=== PATIENT | female | born 1990 | race American Indian/Alaskan Native ===

== ENCOUNTER 2017-04-19 14:05 | Emergency (ER) | payer SELFPAY ==
[2017-04-19] MEDS ORDERED: TYLENOL PO ONE (17:08)
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
[2017-04-19] MEDS ORDERED: TORADOL IM ONE (19:29)
[2017-04-19] MEDS ORDERED: FLEXERIL PO ONE (19:29)
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
[2017-04-20 03:37] VITALS: BP 121/56
== END 2017-04-19 21:26 | disposition home or self-care (01) ==
LOC: ED 14:05
DX: M54.5 Low back pain (principal); M25.561 Pain in right knee; R51 Headache
CPT/HCPCS: 70450; 72100; 73562; 81025; 96372; 99284; J1885

== ENCOUNTER 2019-02-12 20:24 | Inpatient (IN) | payer MEDICAID ==
[2019-02-12] MEDS ORDERED: COLACE PO PRN (20:47)
[2019-02-12] MEDS ORDERED: BENADRYL PO PRN (20:47)
[2019-02-12] MEDS ORDERED: ZOFRAN IV PRN (20:47)
[2019-02-12] MEDS ORDERED: MYLICON PO PRN (20:47)
[2019-02-12] MEDS ORDERED: DEEP SEA NS PRN (20:47)
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
[2019-02-12] MEDS: ROCEPHIN/NS 1 GM/50 ML 1 GM/50 ML BAG IV SCH (22:00)
[2019-02-12 22:20] LABS: Hematocrit 24.5 % (30.3-42.9); Hemoglobin 7.9 gm/dl (10.1-14.3); Mean Corpuscular HGB Conc 32 % (30-34); Platelet Count 263 K/mm3 (140-440); Red Blood Count 3.66 M/mm3 (3.65-5.03); Red Cell Distribution Width 19.9 % (13.2-15.2)
[2019-02-12 22:28] LABS: Mean Corpuscular Volume 67 fl (79-97)
--- NOTE | 2019-02-12 22:45 | Ultrasound Report ---
Limited OB ultrasound for biophysical profile FINDINGS: breathing, spontaneous movement, tone and amniotic fluid volume each score 2 fo r a total of 8/8. heart rate is 137 bpm. Signer Name: Baltazar Gutiérrez MD Signed: 02/12/2019 10:41 PM Workstation Name: [id number]
[2019-02-12] MEDS: AMBIEN PO PRN (23:32)
[2019-02-12] MEDS: TYLENOL PO PRN (23:33)
[2019-02-12] MEDS: LACTATED RINGERS 1,000 ML IV SCH (23:35)
[2019-02-13 01:38] LABS: Basophils % (Manual) 0 % (0.0-1.8); Eosinophils % (Manual) 0 % (0.0-4.3); Total Cells Counted 100
[2019-02-13 01:39] LABS: Anisocytosis 2+; Hypochromasia 1+; Platelet Estimate Consistent w Auto; Poikilocytosis 1+
[2019-02-13] MEDS: LACTATED RINGERS 1,000 ML IV SCH ×2 (06:22→14:53)
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
[2019-02-13] MEDS: PRENATAL VITAMIN PO SCH (10:30)
[2019-02-13] MEDS: ROCEPHIN/NS 1 GM/50 ML 1 GM/50 ML BAG IV SCH (10:30)
[2019-02-13 12:24] LABS: Bilirubin,Urine NEG (Negative); Blood,Urine SM (Negative); Color,Urine Yellow (Yellow); Protein,Urine <15 mg/dL mg/dL (Negative); RBC,Urine < 1.0 /HPF (0.0-6.0)
--- NOTE | 2019-02-13 12:42 | Consultation ---
History of Present Illness Consult date: 02/13/19 Reason for consult: other (Pyleonephritis, Low ASHLEY) History of present illness: Ms. Brower presented to [facility] on 02/12/19 due to left lower flank and back pain. She is 35.0 weeks gestation with AVINASH oh 03/20/19. She was previously followed by [facility] outpatient secondary to Sickle Cell Trait and Alpha Thalassemia Carrier. UA results consistent with Pyelonephritis. She is currently receiving Rocephin IV Q 24 hrs. VSS, afebrile. Pt rahman-cultured- results pending. She reports slight improvement in back pain since initiation of antibiotics. Ultrasound performed on 02/12/19, shows ASHLEY of 7.4cm. She denies leaking of fluid, bleeding, and contractions. Past History Past Medical History: hematologic disorders (Sickle Cell Trait ) Past Surgical History: no surgical history Family/Genetic History: none - Obstetrical History : 3 Medications and Allergies Allergies Allergy/AdvReac Type Severity Reaction Status Date / Time No Known Allergies Allergy Unverified 04/19/17 15:54 Home Medications Medication Instructions Recorded Confirmed Last Taken Type Cyclobenzaprine [Flexeril] 10 mg PO TID PRN #15 tablet 04/19/17 Unknown Rx Naproxen [Naprosyn] 500 mg PO BID #20 tablet 04/19/17 Unknown Rx Ibuprofen [Motrin 800 MG tab] 800 mg PO Q8HR PRN #15 tablet 05/30/18 Unknown Rx Active Meds: Active Medications Acetaminophen (Tylenol) 650 mg PO Q4H PRN PRN Reason: Pain MILD(1-3)/Fever >100.5/GILLESPIE Last Admin: 02/12/19 23:33 Dose: 650 mg Documented by: Diphenhydramine HCl (Benadryl) 25 mg PO Q6H PRN PRN Reason: Itching Docusate Sodium (Colace) 100 mg PO Q12H PRN PRN Reason: Constipation Lactated Ringer's (Lactated Ringers) 1,000 mls @ 125 mls/hr IV DIRECT CHANTEL Last Admin: 02/13/19 06:22 Dose: 125 mls/hr Documented by: Ceftriaxone Sodium (Rocephin/Ns 1 Gm/50 Ml) 1 gm in 50 mls @ 100 mls/hr IV Q24HR CHANTEL; Protocol Last Admin: 02/13/19 10:30 Dose: 100 mls/hr Documented by: Multivitamins/Iron/Calcium ( Vitamin) 1 each PO QDAY CHANTEL Last Admin: 02/13/19 10:30 Dose: 1 each Documented by: Ondansetron HCl (Zofran) 4 mg IV Q6H PRN PRN Reason: Nausea And Vomiting Simethicone (Mylicon) 80 mg PO Q6H PRN PRN Reason: Gas pain Sodium Chloride (Deep Sea) 2 spray NS Q4H PRN PRN Reason: Congestion Zolpidem Tartrate (Ambien) 10 mg PO ONCE PRN PRN Reason: Sleep Last Admin: 02/12/19 23:32 Dose: 10 mg Documented by: Review of Systems Constitutional: other (denies headaches, fatigue, fevers, chills. Complains of minor back pain) Eyes: other (denies visual disturbances) Ears, nose, mouth and throat: deferred Cardiovascular: other (denies chest pain, palpitations, edema) Respiratory: other (denies sob, wheezing, coughing) Breasts: deferred Gastrointestinal: other (denies constipation, diarrhea, nausea) Genitourinary: other (denies contractions, leaking of fluid, and bleeding) Rectal Exam: deferred Neurological: other (denies headaches) - Vital Signs Vital signs: Vital Signs Temp Pulse Resp BP 98.5 F 100 H 18 122/61 02/12/19 21:56 02/12/19 21:56 02/12/19 21:56 02/12/19 21:56 Temp Pulse Resp BP Pulse Ox 97.9 F 107 H 18 127/66 02/13/19 11:59 02/13/19 11:59 02/13/19 11:59 02/13/19 11:59 - Physical Exam Breasts: Positive: deferred Cardiovascular: Regular rate, Normal S1, Normal S2 Lungs: Positive: Clear to auscultation, Normal air movement Abdomen: Positive: soft, other (nontender, gravid) Results Result Diagrams: 02/12/19 21:56 Abnormal lab results 02/12/19 Range/Units 21:56 Hgb 7.9 L (10.1-14.3) gm/dl Hct 24.5 L (30.3-42.9) % MCV 67 L (79-97) fl MCH 22 L (28-32) pg RDW 19.9 H (13.2-15.2) % Seg Neuts % (Manual) 76.0 H (40.0-70.0) % Monocytes % (Manual) 9.0 H (0.0-7.3) % Seg Neutrophils # Man 8.4 H (1.8-7.7) K/mm3 Monocytes # (Manual) 1.0 H (0.0-0.8) K/mm3 All other labs normal. Assessment and Plan A- IUP 35.0 weeks- AVINASH 03/20/19 Pyelonephritis- Rocephin IV Q 24 hrs VSS, Afebrile H&H 7.9 and 24.5 Rahman-cultured- results pending S/P ultrasound (02/12/19)- ASHLEY 7.4 cm BPP 01/15 P- Continue with current plan of care Continue with Rocephin IV Consider renal ultrasound as indicated D/C IV antibiotics after pt remains afebrile/asymptomatic x 24-48hrs and initiate PO antibiotics for 10-14 days. IV fluid hydration Repeat BPP tomorrow, 02/14/19 Continuous monitoring Iron supplementation due to anemia Thank you for your consult. With additional questions/concerns please contact aboriginal education teacher
[2019-02-13] MEDS: TYLENOL PO PRN (21:39)
[2019-02-13] MEDS: AMBIEN PO PRN (21:39)
[2019-02-14] MEDS: LACTATED RINGERS 1,000 ML IV SCH ×2 (06:57→10:14)
[2019-02-14] MEDS: ROCEPHIN/NS 1 GM/50 ML 1 GM/50 ML BAG IV SCH (10:15)
[2019-02-14] MEDS: PRENATAL VITAMIN PO SCH (10:15)
[2019-02-14 12:25] VITALS: BP 123/62
--- NOTE | 2019-02-14 13:51 | Progress Note ---
Assessment and Plan IUP at 35 weeks with pyelonephritis. Testing today reveals: Ashley is 25 and BPP 8/8. Plan for discharge today. Subjective - Subjective Date of service: 02/14/19 Principal diagnosis: pyelonephritis Interval history: Pt has no complaints today. Per [facility], patient will be able to be discharged if ASHLEY and BPP ok. Patient reports: movement normal, no new complaints, no loss of fluid, no vaginal bleeding, no contractions Objective - Vital Signs Vital Signs: Vital Signs - 12hr 02/14/19 02/14/19 02/14/19 05:46 08:46 08:56 Temperature 95.8 F L 98.0 F Pulse Rate 86 86 Respiratory 18 20 Rate Blood Pressure 125/66 124/76 Blood Pressure 125/66 [Right] 02/14/19 02/14/19 12:23 12:24 Temperature 97.9 F Pulse Rate 76 Respiratory 20 Rate Blood Pressure 123/62 Blood Pressure [Right] - Exam Lungs: Clear to auscultation, Normal air movement Abdomen: Present: normal appearance, soft. Absent: distention, tenderness Uterus: Present: normal FHR: auscultation normal - Labs Labs: Abnormal Labs 02/12/19 21:56 Hgb 7.9 L Hct 24.5 L MCV 67 L MCH 22 L RDW 19.9 H Seg Neuts % (Manual) 76.0 H Monocytes % (Manual) 9.0 H Seg Neutrophils # Man 8.4 H Monocytes # (Manual) 1.0 H
--- NOTE | 2019-02-14 13:58 | Discharge Summary ---
Providers - Providers Date of Admission: 02/12/19 22:33 Date of discharge: 02/14/19 Attending physician: ARMANDO REYES Primary care physician: ARMANDO REYES Hospitalization Reason for admission: other (pyelonephritis) Other procedures: none Discharge diagnosis: other (pyelonephritis) Pertinent studies: urine culture Condition at discharge: Good Disposition: DC-01 TO HOME OR SELFCARE Plan - Discharge Medications Prescriptions: Sulfamethoxazole/Trimethoprim [Bactrim DS TAB] 1 each PO BID #14 tablet - Provider Discharge Summary Activity: routine, no sex for 6 weeks, no heavy lifting 4 weeks, no strenuous exercise Diet: routine Instructions: routine Additional instructions: [] Smoking cessation referral if applicable(refer to patient education folder for contact #) [] Refer to [facility]'s [facility] Booklet Call your doctor immediately for: * Fever > 100.5 * Heavy vaginal bleeding ( >1 pad per hour) * Severe persistent headache * Shortness of breath * Reddened, hot, painful area to leg or breast * Drainage or odor from incision. * Keep incision clean and dry at all times and follow doctor's instructions regarding bathing/showering - Follow up plan Follow up: ARMANDO REYES MD [Primary Care Provider] - 14 Days
[2019-02-14] MEDS: TYLENOL PO PRN (15:15)
--- NOTE | 2019-02-14 15:23 | Ultrasound Report ---
Examination: Ultrasound Obstetrical Limited, 02/14/2019 INDICATION: Evaluate well being. COMPARISON: Limited obstetrical ultrasound, 02/12/2015 FINDINGS: There is a single living intrauterine with the head in the cephalic position. Amniotic flui d index measures 25.6 cm, which is within normal limits. The heart rate is 117 beats per minute . Signer Name: Viri Vance MD Signed: 02/14/2019 3:18 PM Workstation Name: [id number]
--- NOTE | 2019-02-14 15:24 | Ultrasound Report ---
ULTRASOUND BIOPHYSICAL PROFILE INDICATION / CLINICAL INFORMATION: Evaluate well-being COMPARISON: Obstetrical ultrasound with biophysical profile, 02/12/2019 FINDINGS: BREATHING MOVEMENT = 2 GROSS BODY MOVEMENT = 2 TONE = 2 QUALITATIVE AMNIOTIC FLUID VOLUME = 2 TOTAL BIOPHYSICAL SCORE = 01/15 AMNIOTIC FLUID INDEX (cm) = 25.6 PRESENTATION: Cephalic. HEART RATE (beats per minute): 117 IMPRESSION: 1. biophysical profile = 01/15 Signer Name: Viri Vance MD Signed: 02/14/2019 3:19 PM Workstation Name: [id number]
== END 2019-02-14 15:22 | disposition home or self-care (01) | DRG 781 ==
LOC: TRG 20:24 → LD 20:27 → TRG 22:32 → LD 22:33
PROVIDERS: ADMIT Obstetrics & Gynecology; ATTEND Obstetrics & Gynecology
DX: O23.03 Infections of kidney in pregnancy, third trimester (principal); Z3A.34 34 weeks gestation of pregnancy; O99.013 Anemia complicating pregnancy, third trimester; D57.3 Sickle-cell trait
CPT/HCPCS: 36415; 76815; 76819; 81001; 85007; 85025; 86850; 86900; 86901; 87040; 87086; G0378; J0696; J7120

== ENCOUNTER 2019-03-05 05:06 | Inpatient (IN) | payer MEDICAID ==
[2019-03-05] MEDS ORDERED: LACTATED RINGERS 1,000 ML ONE (05:25)
--- NOTE | 2019-03-05 06:21 | History and Physical Report ---
History of Present Illness Date of examination: 03/05/19 Date of admission: 03/05/19 05:06 Chief complaint: contractions, water leaking History of present illness: Pt is 28 year old -[place] AVINASH 03/20/19 at 37w6d presents with contractions though pt does not how long, and leaking water but she is unsure since what time. 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 She is GBS negative. Past History Past Medical History: hematologic disorders (anemia with thrombocytosis ) Past Surgical History: no surgical history Family/Genetic History: none Social history: no significant social history - Obstetrical History Expected Date of Delivery: 03/20/19 Actual Gestation: 37 Week(s) 6 Day(s) : 3 Para: 2 Hx # Term Pregnancies: 2 Number of Pregnancies: 0 Spontaneous Abortions: 0 Induced : 0 Number of Living Children: 2 Medications and Allergies Allergies Allergy/AdvReac Type Severity Reaction Status Date / Time No Known Allergies Allergy Unverified 04/19/17 15:54 Home Medications Medication Instructions Recorded Confirmed Last Taken Type Cyclobenzaprine [Flexeril] 10 mg PO TID PRN #15 tablet 04/19/17 02/13/19 Unknown Rx Naproxen [Naprosyn] 500 mg PO BID #20 tablet 04/19/17 02/13/19 Unknown Rx Ibuprofen [Motrin 800 MG tab] 800 mg PO Q8HR PRN #15 tablet 05/30/18 02/13/19 Unknown Rx Sulfamethoxazole/Trimethoprim 1 each PO BID #14 tablet 02/14/19 Unknown Rx [Bactrim DS TAB] Review of Systems All systems: negative - Vital Signs Vital signs: Vital Signs Pulse Pulse Ox 81 100 03/05/19 06:00 03/05/19 06:00 Temp Pulse Resp BP Pulse Ox 67 159/81 100 03/05/19 06:10 03/05/19 06:02 03/05/19 06:10 - Physical Exam Breasts: Positive: deferred Abdomen: Positive: soft (gravid ) Genitourinary (Female): Positive: normal external genitalia Uterus: Positive: enlarged (gravid ) - Obstetrical FHR: auscultation normal Cervical Dilatation: 10 Cervical Effacement Percentage: 100 station: +3 Uterine Contraction Pattern: Regular Uterine Tone Measurement Phase: Resting Uterine Contraction Intensity: Strong/Firm Results All other labs normal. Assessment and Plan A: IUP at 37w6d Active labor H/o 4th degree laceration with plan for primary section GBS negative P: Admit to labor and delivery Vaginal delivery imminent Routine intrapartum care
[2019-03-05] MEDS ORDERED: OXYTOCIN 20 UNIT/1000ML DRIP 20,000 MILLIUNITS/1,000 ML BAG IV ONE (06:28)
[2019-03-05] MEDS ORDERED: TERBUTALINE 1 MG/1 ML INJ IVP PRN (06:32)
[2019-03-05] MEDS ORDERED: BUTORPHANOL 2 MG/1 ML INJ IV PRN (06:32)
[2019-03-05] MEDS ORDERED: ePHEDrine SULFATE 50 MG/1 ML INJ IV PRN (06:32)
[2019-03-05] MEDS ORDERED: TERBUTALINE 1 MG/1 ML INJ SUB-Q PRN (06:32)
[2019-03-05] MEDS ORDERED: NALOXONE 0.4 MG/1 ML INJ IV PRN (06:32)
[2019-03-05] MEDS ORDERED: MINERAL OIL 30 ML ORAL LIQD PO PRN (06:32)
[2019-03-05] MEDS ORDERED: fentaNYL 100 MCG/2 ML INJ IV PRN (06:32)
--- NOTE | 2019-03-05 06:32 | Procedure Note ---
OB Delivery Note - Delivery Date of Delivery: 03/05/19 Surgeon: ARMANDO REYES Estimated blood loss: 300cc - Vaginal Delivery presentation: vertex Delivery position: OA Intrapartum events: precipitous labor- <3hr Delivery induction: none Delivery monitor: external FHT, external uterine Route of delivery: Delivery placenta: spontaneous Episiotomy: none Delivery laceration: none Anesthesia: none Delivery comments: Pt rapidly progressed to complete/complete/+3 while making preparations for planned delivery. She delivered a viable female over intact perineum via under no anesthesia attended by Estephania Mirza CNM while on- call physician en route. Upon entry to room, was resting on maternal abdomen. Delayed cord clamp. Cord clamped and cut and handed to RN in attendance. Placenta delivered spontaneously (3VC, intact). Vagina and perineum explored. No lacerations. EBL 300 mL. - A at 1 minute: 8 at 5 minutes: 9 Infant Gender: Female (3817g (8lb 7oz) @ 0534 am)
[2019-03-05 06:53] LABS: Hematocrit 28.5 % (30.3-42.9); Mean Corpuscular HGB Conc 32 % (30-34); Platelet Count 385 K/mm3 (140-440)
[2019-03-05] MEDS ORDERED: OXYTOCIN 20 UNIT/1000ML DRIP 20 UNITS/1,000 ML BAG IV SCH ×2 (07:00→09:00)
[2019-03-05] MEDS ORDERED: LACTATED RINGERS 1,000 ML IV SCH (07:00)
[2019-03-05 07:32] LABS: Mean Corpuscular Volume 65 fl (79-97); Red Cell Distribution Width 20.9 % (13.2-15.2)
[2019-03-05] MEDS ORDERED: LANOLIN/ZINC/DIMETHICONE (LANSINOH) 7 GM TP PRN ×2 (08:15→09:00)
[2019-03-05] MEDS ORDERED: PROMETHAZINE 25 MG RECT SUPP PR PRN (09:00)
[2019-03-05] MEDS ORDERED: PROMETHAZINE 25 MG TAB PO PRN (09:00)
[2019-03-05] MEDS ORDERED: BENZOCAINE/MENTHOL 20/0.5% TOP SPRAY 56 GM TP PRN (09:00)
[2019-03-05] MEDS ORDERED: WITCH HAZEL/ GLYCERIN PAD TP PRN (09:00)
[2019-03-05] MEDS ORDERED: diphenhydrAMINE 25 MG CAP PO PRN (09:00)
[2019-03-05] MEDS ORDERED: HYDROcodone/ACETAMINOPHEN 5-325 MG TAB PO PRN (09:00)
[2019-03-05] MEDS ORDERED: ONDANSETRON 4 MG/2 ML INJ IV PRN (09:00)
[2019-03-05] MEDS ORDERED: ACETAMINOPHEN 325 MG TAB PO PRN (09:00)
[2019-03-05] MEDS: IBUPROFEN 600 MG TAB PO SCH ×3 (10:14→23:45)
[2019-03-05] MEDS: FERROUS SULFATE 325 MG TAB PO SCH ×2 (10:15→22:10)
[2019-03-05 19:55] LABS: Hematocrit 24.9 % (30.3-42.9); Hemoglobin 7.9 gm/dl (10.1-14.3)
[2019-03-05] MEDS ORDERED: MAGNESIUM HYDROXIDE (MOM) ORAL LIQD UDC PO PRN (22:00)
[2019-03-06] MEDS ORDERED: TETANUS,DIPH,PERTUSS(ACELL) VACCINE 0.5 ML SYRINGE IM ONE (06:00)
--- NOTE | 2019-03-06 08:22 | Progress Note ---
Assessment and Plan A/P PPD1 routine PP care h/h acute anemia on iron bid d/c home tomorrow Subjective - Subjective Date of service: 03/06/19 Principal diagnosis: Patient reports: appetite normal, voiding normally, pain well controlled, ambulating normally [place]: doing well Objective - Vital Signs Latest vital signs: Vital Signs Temp Pulse Resp BP Pulse Ox 03/05/19 23:49 98.2 F 59 L 20 119/66 98 03/05/19 16:55 98.0 F 72 20 138/67 97 Intake and Output 03/05/19 03/06/19 03/06/19 23:59 07:59 15:59 Output Total 500 Balance -500 Output: Urine 500 Void 500 Other: Total, Output Amount 500 # Voids Void 3 - Exam Breasts: Present: normal Cardiovascular: Present: Regular rate, Normal S1 Lungs: Present: Clear to auscultation, Normal air movement Abdomen: Present: normal appearance, soft, normal bowel sounds. Absent: distention, tenderness, guarding Uterus: Present: normal, firm, fundal height below umbilicus. Absent: bogginess, tenderness Extremities: Present: normal Deep Tendon Reflex Grade: Normal +2 Incision: Present: normal, dry, intact - Labs Labs: Abnormal lab results 03/05/19 Range/Units 19:29 Hgb 7.9 L (10.1-14.3) gm/dl Hct 24.9 L (30.3-42.9) %
[2019-03-06] MEDS: IBUPROFEN 600 MG TAB PO SCH ×3 (09:59→22:49)
[2019-03-06] MEDS: FERROUS SULFATE 325 MG TAB PO SCH ×2 (09:59→22:49)
[2019-03-06] MEDS ORDERED: MEASLES, MUMPS & RUBELLA 12,500 UNIT/0.5 ML VACCINE SUB-Q ONE (11:00)
[2019-03-07] MEDS: FERROUS SULFATE 325 MG TAB PO SCH (10:45)
[2019-03-07] MEDS: IBUPROFEN 600 MG TAB PO SCH ×2 (10:45→16:09)
--- NOTE | 2019-03-07 12:31 | Progress Note ---
Assessment and Plan - Patient Problems (1) Vaginal delivery Current Visit: Yes Status: Acute Plan to address problem: discharge home Subjective - Subjective Date of service: 03/07/19 Principal diagnosis: Interval history: Patient without complaints. Doing well Patient reports: appetite normal, voiding normally, pain well controlled [place]: doing well Objective - Vital Signs Latest vital signs: Vital Signs Temp Pulse Resp BP BP Pulse Ox 03/07/19 08:40 98.6 F 83 18 122/71 100 03/07/19 01:37 98.4 F 82 20 140/80 99 03/06/19 15:56 98.4 F 85 20 119/67 Intake and Output 03/06/19 03/07/19 03/07/19 22:59 06:59 14:59 Intake Total 240 480 240 Balance 240 480 240 Intake: Oral 240 240 120 Intake, Free Water 240 120 Other: Total, Intake Amount 120 240 120 # Voids Void 1 1 1
--- NOTE | 2019-03-07 12:32 | Discharge Summary ---
Providers - Providers Date of Admission: 03/05/19 05:06 Date of discharge: 03/07/19 Attending physician: ARMANDO REYES Primary care physician: ARMANDO REYES Hospitalization Reason for admission: active labor Delivery: Discharge diagnosis: IUP at term delivered Hospital course: Patient admitted in labor. Had a . uncomplicated Condition at discharge: Good Disposition: DC-01 TO HOME OR SELFCARE - Discharge Diagnoses (1) Vaginal delivery Status: Acute Plan - Discharge Medications Prescriptions: Ferrous Sulfate [Feosol 325 MG tab] 325 mg PO BID #60 tablet Ibuprofen [Motrin] 800 mg PO Q8HR PRN #30 tablet PRN Reason: Pain, Moderate (4-6) HYDROcodone/APAP 5-325 [[place] 5/325] 1 each PO Q6HR PRN #20 tablet PRN Reason: Pain - Provider Discharge Summary Activity: no sex for 6 weeks, no heavy lifting 4 weeks, no strenuous exercise Diet: routine Instructions: routine Additional instructions: [] Smoking cessation referral if applicable(refer to patient education folder for contact #) [] Refer to [facility] Booklet Call your doctor immediately for: * Fever > 100.5 * Heavy vaginal bleeding ( >1 pad per hour) * Severe persistent headache * Shortness of breath * Reddened, hot, painful area to leg or breast * schedule visit in 4 weeks - Follow up plan
[2019-03-07 13:26] VITALS: BP 135/79
== END 2019-03-07 13:35 | disposition home or self-care (01) | DRG 775 ==
LOC: APU 05:06 → LD 05:48 → OB 07:54
PROVIDERS: ADMIT Obstetrics & Gynecology; ATTEND Obstetrics & Gynecology
PROC: 10E0XZZ Delivery of Products of Conception, External Approach (ICD-10-PCS; principal; 2019-03-05)
PROC: 3E0234Z Introduction of Serum, Toxoid and Vaccine into Muscle, Percutaneous Approach (ICD-10-PCS; 2019-03-06)
DX: O62.3 Precipitate labor (principal); O99.02 Anemia complicating childbirth; D64.9 Anemia, unspecified; O99.12 Other diseases of the blood and blood-forming organs and certain disorders involving the immune mechanism complicating childbirth; D69.6 Thrombocytopenia, unspecified; Z3A.37 37 weeks gestation of pregnancy; Z37.0 Single live birth; Z23 Encounter for immunization
CPT/HCPCS: 36415; 76816; 76819; 80053; 81001; 82565; 83615; 84450; 84460; 84550; 85014; 85018; 85025; 85027; 86592; 86850; 86900; 86901; G0378; J2590; J7120

== ENCOUNTER 2020-05-12 21:43 | Outpatient (CLI) | payer MEDICAID ==
[2020-05-12 22:35] VITALS: BP 144/72
[2020-05-12] MEDS ORDERED: LACTATED RINGERS 1,000 ML IV ONE (22:44)
[2020-05-12 23:13] LABS: Amphetamine Screen,Urine PRESUMPTIVE NEGATIVE; Benzodiazepines Screen,Urine PRESUMPTIVE NEGATIVE; Cannabinoid Screen,Urine PRESUMPTIVE NEGATIVE; Cocaine Screen,Urine PRESUMPTIVE NEGATIVE; Methadone Screen,Urine PRESUMPTIVE NEGATIVE; Opiate Screen,Urine PRESUMPTIVE NEGATIVE
[2020-05-12 23:33] LABS: Bilirubin,Urine NEG (Negative); Blood,Urine NEG (Negative); Color,Urine Yellow (Yellow); Mucus,Urine FEW /HPF; Protein,Urine <15 mg/dL mg/dL (Negative); Urobilinogen,Urine < 2.0 mg/dL (<2.0)
[2020-05-13] MEDS: TERBUTALINE 1 MG/1 ML INJ SUB-Q PRN ×2 (00:37→01:33)
== END 2020-05-13 03:30 | disposition home or self-care (01) ==
LOC: TRG 21:43 → APU 21:55 → TRG 05-13 03:30
PROVIDERS: ATTEND Obstetrics & Gynecology
DX: O62.9 Abnormality of forces of labor, unspecified (principal); O24.419 Gestational diabetes mellitus in pregnancy, unspecified control; Z3A.35 35 weeks gestation of pregnancy
CPT/HCPCS: 59025; 80307; 81001; 96360; 96372; J3105; J7120